=== PATIENT | male | born 1955 | race African-American/Black ===

== ENCOUNTER → 2016-12-14 | Outpatient (CLI) | payer OTHER ==
[~2016-12-14] MED LIST: ATEN50TA PO; CLON.1 PO; CYMB30CA PO; CYMB60CA PO; DILA2TAB4 PO; HYDR-3516 PO; HYDR-3583 PO; HYDR25TA5 PO; HYDR2TAB PO; HYDR50TA15 PO; IBUP800T23 PO; LABE200T2 PO; LIDO5%T TOPICAL; METH500T3 PO; TAMS0.4C4 PO; VERA120T3 PO; WALKER WHEELS/F1 MIS
[2016-12-14 10:55] LABS: BLOOD, URINE NEG (NEG); GLUCOSE,URINE NEG (NEG); KETONE, URINE NEG (NEG); MUCUS URINE FEW /lpf (OCC); NITRITE,URINE NEG (NEG); PH, URINE 5.5 (5.0-8.5); SQUAMOUS EPITHELIAL CELL URINE <1 /hpf (0-5); URINE COLOR YELLOW (YELLW/STRAW)
[2016-12-14 10:56] LABS: AUTOMATED NEUTROPHIL # 3.3 TH/MM3 (1.8-7.7); BASOPHIL % 0.3 % (0.0-2.0); EOSINOPHIL # 0.1 TH/MM3 (0-0.4); EOSINOPHIL % 1.7 % (0.0-4.0); HEMATOCRIT 36.5 % (39.0-51.0); LYMPH % 25.7 % (9.0-44.0); LYMPHOCYTE # 1.4 TH/MM3 (1.0-4.8); MEAN CELL VOLUME 74.1 FL (80.0-100.0); MEAN CORPUSCULAR HEMOGLOBIN 23.4 PG (27.0-34.0); MEAN CORPUSCULAR HGB CONC 31.5 % (32.0-36.0); MONO % 13.8 % (0.0-8.0); NEUT % 58.5 % (16.0-70.0); PLATELET COUNT 241 TH/MM3 (150-450); RED BLOOD COUNT 4.92 MIL/MM3 (4.50-5.90); RED CELL DISTRIBUTION WIDTH 15.4 % (11.6-17.2); WHITE BLOOD COUNT 5.6 TH/MM3 (4.0-11.0)
[2016-12-14 10:58] LABS: COMMENT (UR) CULT NOT INDICATED; CULTURE IF INDICATED CULT NOT INDICATED
[2016-12-14 10:58] LABS: HEMO FLAGS AUTO DIFF
[2016-12-14 11:01] LABS: APTT (PATIENT) 25.8 SEC (24.3-30.1); PROTHROMBIN TIME - PATIENT 10.7 SEC (9.8-11.6)
[2016-12-14 11:21] LABS: ALKALINE PHOSPHATASE 41 U/L (45-117); ALT (GPT) 16 U/L (12-78); ANION GAP 9 MEQ/L (5-15); AST (GOT) 16 U/L (15-37); BICARBONATE 26.4 MEQ/L (21.0-32.0); BLOOD UREA NITROGEN 20 MG/DL (7-18); CHLORIDE 105 MEQ/L (98-107); GLOMERULAR FILTRATION RATE 58 ML/MIN (>89); GLUCOSE,FASTING 82 MG/DL (74-99); POTASSIUM 3.2 MEQ/L (3.5-5.1); SODIUM (NA) 140 MEQ/L (136-145); TOTAL BILIRUBIN ADULT 0.3 MG/DL (0.2-1.0)
[2016-12-14 11:36] LABS: OVALOCYTES 1+ (NORMAL); SCAN/DIFF AUTO DIFF CONFIRMED
--- NOTE | 2016-12-14 12:53 | RADRPT ---
EXAM DATE/TIME: 12/14/2016 11:15 [facility] COMPARISON: No previous studies available for comparison. INDICATIONS : Evaluate for pneumonia, pneumothorax or communicable diseases. Pre-op for spinal stimulator placemen t surgery. MEDICAL HISTORY : None. SURGICAL HISTORY : Lumbar laminectomy. ENCOUNTER: Initial ACUITY: 1 day PAIN SCORE: 0/10 LOCATION: chest FINDINGS: PA and lateral views of the chest demonstrate the lungs to be symmetrically aerated without evidence of mass, infiltrate or effusion. The cardiomediastinal contours are unremarkable. Osseous structure s are intact. CONCLUSION: No acute disease. Rodrigo Bustos MD FACR on December 14, 2016 at 12:50 Board Certified Radiologist. This report was verified electronically.
--- NOTE | 2016-12-16 13:14 | EKG ---
Date Performed: 12/14/2016 Time Performed: 10:30:44 PTAGE: 61 years EKG: SINUS BRADYCARDIA LEFT VENTRICULAR HYPERTROPHY AND ST-T CHANGE Since previous tracing, no s ignificant change noted ABNORMAL ECG PREVIOUS TRACING 05/05/2008 [id number] DOCTOR: Cathy Garnett Interpretating Date/Time 12/16/2016 13:12:24
== END ==
LOC: CPRE 10:04
PROVIDERS: ATTEND Neurological Surgery
DX: Z01.810 Encounter for preprocedural cardiovascular examination (principal); Z01.811 Encounter for preprocedural respiratory examination; Z01.812 Encounter for preprocedural laboratory examination
CPT/HCPCS: 36415; 71020; 80053; 81001; 85025; 85610; 85730; 93005

== ENCOUNTER 2016-12-21 06:03 | Inpatient (IN) | payer OTHER ==
[~2016-12-21] VITALS: Ht 180.3 cm; Wt 102.2 kg
[~2016-12-21 06:03] MED LIST changes: -CYMB30CA PO; -CYMB60CA PO; -DILA2TAB4 PO; -HYDR-3516 PO; -LIDO5%T TOPICAL; -TAMS0.4C4 PO; -WALKER WHEELS/F1 MIS
[2016-12-21] MEDS ORDERED: LACTATED RINGER'S 1000 ML IV SCH (06:45)
[2016-12-21] MEDS ORDERED: METOPROLOL TARTRATE 25 MG TAB PO PRN (06:45)
[2016-12-21] MEDS ORDERED: ceFAZolin 2 GM PREMIX 50 ML IV SCH (06:45)
[2016-12-21] MEDS ORDERED: SODIUM CHLORID 0.9% 500 ML IV SCH (06:45)
[2016-12-21] MEDS ORDERED: INSULIN HUMAN REGULAR 1,000 UNITS/10 ML VIAL SQ PRN (06:45)
[2016-12-21 07:01] VITALS: BP 122/76; PULSE 63; RESP 18; TEMP 97.4; O2SAT 99
[2016-12-21] MEDS ORDERED: THROMBIN (TOPICAL) 5,000 UNIT VIAL ONE (07:25)
[2016-12-21] MEDS ORDERED: GELFOAM SIZE 100 ONE (07:25)
[2016-12-21] MEDS ORDERED: LIDOCAINE 1%/EPINEPHrine 1:100,000 SOLN 30 ML VIAL ONE (07:25)
[2016-12-21] MEDS ORDERED: BUPIVACAINE HCL PF 0.5% 30 ML VIAL ONE (07:25)
[2016-12-21] MEDS ORDERED: ACETAMINOPHEN 1000 MG/100 ML VIAL IV ONE (09:35)
[2016-12-21] MEDS ORDERED: FAMOTIDINE 20 MG/2 ML VIAL ONE (09:35)
[2016-12-21] MEDS ORDERED: ARTIFICIAL TEARS OPTH OINT 3.5 APPLIC/3.5 GM TUBO ONE (09:36)
[2016-12-21] MEDS ORDERED: DEXAMETHASONE SOD PHOS 4 MG/ML VIAL ONE (09:36)
[2016-12-21] MEDS ORDERED: MIDAZOLAM HCL 2 MG/2 ML VIAL ONE (09:36)
[2016-12-21] MEDS ORDERED: ceFAZolin INJ 1,000 MG VIAL IV ONE (11:10)
[2016-12-21] MEDS ORDERED: NEOSTIGMINE METHYLSULFATE 10 MG/10 ML VIAL IV PUSH ONE (12:00)
[2016-12-21] MEDS ORDERED: ePHEDrine/NS 25 MG/5 ML SYR IV ONE (12:00)
[2016-12-21] MEDS ORDERED: SODIUM CHLOR 0.9% 250 ML INJ 500 ML IV ONE (12:00)
[2016-12-21] MEDS ORDERED: PROPOFOL 200 MG/20 ML AMP IV ONE (12:00)
[2016-12-21] MEDS ORDERED: ONDANSETRON HCL 4 MG/2 ML VIAL IV PUSH ONE (12:00)
[2016-12-21] MEDS ORDERED: LACTATED RINGER'S 1000 ML INJ 1,000 ML IV ONE (12:00)
[2016-12-21] MEDS ORDERED: PHENYLEPH/NS 1000 MCG/10 ML SYR IV ONE (12:00)
[2016-12-21] MEDS ORDERED: DO NOT ADM ANY ANTICOAGULANT DRUGS XX PRN (12:10)
[2016-12-21] MEDS ORDERED: ONDANSETRON HCL 4 MG/2 ML VIAL IV PUSH PRN (12:45)
[2016-12-21] MEDS ORDERED: ACETAMINOPHEN/HYDROcodone 325 MG/10 MG TAB PO PRN ×2 (12:45→15:15)
[2016-12-21] MEDS ORDERED: fentaNYL CITRATE 250 MCG/5 ML AMP ONE (13:00)
[2016-12-21] MEDS ORDERED: MORPHINE SULFATE 4 MG/ML INJ ONE (13:00)
[2016-12-21] MEDS ORDERED: SODIUM CHLORIDE FLUSH PRN IVF (14:00)
[2016-12-21] MEDS ORDERED: HYDROmorphone HCL 2 MG TAB PO PRN (15:15)
[2016-12-21] MEDS ORDERED: METHOCARBAMOL 500 MG TAB PO PRN (15:30)
[2016-12-21] MEDS ORDERED: IBUPROFEN 800 MG TAB PO PRN (15:45)
[2016-12-21 16:00] VITALS: BP 180/93; PULSE 60; RESP 20; TEMP 96.2; O2SAT 98
--- NOTE | 2016-12-21 16:30 | RADRPT ---
EXAM DATE/TIME: 12/21/2016 11:05 COMPARISON: No previous studies available for comparison. INDICATIONS : Stimulator placement. MEDICAL HISTORY : None. SURGICAL HISTORY : None. ENCOUNTER: Initial ACUITY: 1 day PAIN SCORE: 0/10 LOCATION: Thoracic spine. FINDINGS: Epidural stimulator leads are present in the thoracic spine. Small field of view does not allow level localization. CONCLUSION: 1. Postsurgical changes as above. Gaurang Freeman MD on December 21, 2016 at 16:28 Board Certified Radiologist. This report was verified electronically.
[2016-12-21] MEDS: hydrALAZINE HCL 50 MG TAB PO SCH (17:26)
[2016-12-21] MEDS: VERAPAMIL HCL 120 MG TAB PO SCH (17:27)
[2016-12-21] MEDS ORDERED: VERAPAMIL HCL 120 MG TAB PO SCH (18:00)
[2016-12-21] MEDS ORDERED: hydrALAZINE HCL 50 MG TAB PO SCH (18:00)
[2016-12-21 18:40] VITALS: O2SAT 98
[2016-12-21] MEDS: METHOCARBAMOL 500 MG TAB PO PRN (20:56)
[2016-12-21] MEDS: HYDROCHLOROTHIAZIDE 25 MG TAB PO SCH (20:57)
[2016-12-21] MEDS: cloNIDine HCL 0.1 MG TAB PO SCH (20:57)
[2016-12-21] MEDS: ATENOLOL 50 MG TAB PO SCH (20:57)
[2016-12-21] MEDS: SODIUM CHLORIDE FLUSH BID IVF SCH (20:59)
[2016-12-21] MEDS ORDERED: LABETALOL HCL 200 MG TAB PO SCH (21:00)
[2016-12-21] MEDS ORDERED: HYDROCHLOROTHIAZIDE 25 MG TAB PO SCH (21:00)
[2016-12-21] MEDS ORDERED: cloNIDine HCL 0.1 MG TAB PO SCH (21:00)
[2016-12-21] MEDS: oxyCODONE HCL 10 MG CONTROLLED RELEASE TAB PO SCH (21:10)
[2016-12-21 21:12] VITALS: BP 176/95; PULSE 56; RESP 20; TEMP 96; O2SAT 100
[2016-12-21] MEDS: TAMSULOSIN HCL 0.4 MG CAP PO SCH (21:47)
[2016-12-22] VITALS (7 sets, daily range): BP systolic 135–188; BP diastolic 78–95; PULSE 58–74; RESP 16–20; TEMP 96.2–100.7; O2SAT 95–100
[2016-12-22] MEDS: HYDROmorphone HCL 2 MG TAB PO PRN ×6 (00:42→20:50)
[2016-12-22] MEDS: METHOCARBAMOL 500 MG TAB PO PRN ×2 (04:48→13:03)
[2016-12-22] MEDS: oxyCODONE HCL 10 MG CONTROLLED RELEASE TAB PO SCH ×3 (05:59→22:20)
[2016-12-22] MEDS: hydrALAZINE HCL 50 MG TAB PO SCH ×3 (06:09→17:32)
[2016-12-22] MEDS: TAMSULOSIN HCL 0.4 MG CAP PO SCH (08:52)
[2016-12-22] MEDS: VERAPAMIL HCL 120 MG TAB PO SCH ×3 (08:52→17:32)
[2016-12-22] MEDS: HYDROCHLOROTHIAZIDE 25 MG TAB PO SCH ×2 (08:52→20:43)
[2016-12-22] MEDS: ATENOLOL 50 MG TAB PO SCH (08:53)
[2016-12-22] MEDS: cloNIDine HCL 0.1 MG TAB PO SCH ×2 (08:54→20:43)
[2016-12-22] MEDS: SODIUM CHLORIDE FLUSH BID IVF SCH ×2 (09:00→20:44)
[2016-12-22 11:16] LABS: ALT (GPT) 20 U/L (12-78); ANION GAP 9 MEQ/L (5-15); AST (GOT) 23 U/L (15-37); BLOOD UREA NITROGEN 15 MG/DL (7-18); CHLORIDE 100 MEQ/L (98-107); GLOMERULAR FILTRATION RATE 70 ML/MIN (>89); POTASSIUM 3.3 MEQ/L (3.5-5.1); SODIUM (NA) 137 MEQ/L (136-145)
[2016-12-22 11:19] LABS: ALKALINE PHOSPHATASE 40 U/L (45-117); TOTAL BILIRUBIN ADULT 0.7 MG/DL (0.2-1.0)
[2016-12-22] MEDS ORDERED: LIDOCAINE HCL 5% OINT 37 GM TUBE TOPICAL PRN (14:30)
--- NOTE | 2016-12-22 14:31 | HHI.NSPN ---
History Chief Complaint: incisional pain Interval History 61 yr old with chronic back and neurogenic pain is s/p laminotomy for implant of dorsal column stimulator yesterday. EKG changes were noted as well as HTN and constipation. He was admitted overnight for pain management and PT. He had some urinary retention last night but improved after flomax. Review of Systems General: Negative for: fever, chills, insomnia Respiratory: Negative for: shortness of breath, cough, sputum Cardiovascular: Negative for: chest pain, palpitations, orthopnea Gastrointestinal: Negative for: nausea, vomitting, diarrhea, constipation Exam Results Vital Signs Date Time Temp Pulse Resp B/P Pulse Ox O2 Delivery O2 Flow Rate FiO2 12/22/16 12:33 97.2 65 20 165/89 95 12/21/16 18:40 21 12/21/16 14:25 Room Air 12/21/16 12:11 2 Physical Examination Alert, c/po incisional pain Motor strength limited in the upright position but is good when laying down in both hip flex/quads/ant tib and gastroc Wounds on the flank and back are dry and closed No Babinski, no rashes. Lab, Micro, Other Results Laboratory Tests Test 12/22/16 10:31 Sodium Level 137 MEQ/L Potassium Level 3.3 MEQ/L Chloride Level 100 MEQ/L Carbon Dioxide Level 28.0 MEQ/L Anion Gap 9 MEQ/L Blood Urea Nitrogen 15 MG/DL Creatinine 1.27 MG/DL Estimat Glomerular Filtration 70 ML/MIN Rate Random Glucose 118 MG/DL Calcium Level 8.9 MG/DL Total Bilirubin 0.7 MG/DL Aspartate Amino Transf 23 U/L (AST/SGOT) Alanine Aminotransferase 20 U/L (ALT/SGPT) Alkaline Phosphatase 40 U/L Total Protein 8.2 GM/DL Albumin 3.8 GM/DL Medical Decision Making Impression and Plan 1- Chronic pain syndrome, expected post operative pain from previous opioid dependence, should improve after a few days. He was encouraged to get OOB and to walk with his walker. Fentanyl was added to wean the oxycontin down tomorrow. 2- Constipation is chronic but bowel progra was instrumented. 3- HTN, severe and poorly controlled. EKG changes noted and renal consult for better management requested. Total Minutes: 10 Jesús Sharpe Dec 22, 2016 14:31
[2016-12-22] MEDS: POLYETHYLENE GLYCOL 17 GM PKG PO SCH (14:53)
[2016-12-22] MEDS: BISACODYL 10 MG SUPP RECTAL SCH (14:54)
[2016-12-22] MEDS ORDERED: fentaNYL 25 MCG/HR PATCH TD SCH (16:00)
--- NOTE | 2016-12-22 16:03 | MB ---
cc: REFUGIO CHANEL MD DATE OF CONSULTATION: 12/22/2016 REASON FOR CONSULTATION Hypertension uncontrolled, rule out secondary hypertension. HISTORY OF PRESENT ILLNESS This is a 61-year-old male with a past medical history of hypertension for 20 years, history of chronic back pain with herniated lumbar pulposus, history of chronic liver disease who was admitted for the back surgery. The patient has a history of hypertension for 20 years and according to him 7 or 8 years ago he had some workup done for secondary hypertension and he was told that they did not find anything. I do not have anything available in the computer, possibly it was done as an outpatient. The patient claims that he has not very well-controlled blood pressure at home, his systolic has been in the range of 170s and 160s. Here it is the same thing, the systolic goes from 170-188 and the diastolic has been around 89-95. The patient denies any headache, dizziness or blurring of vision. He has no palpitation. There is no weight loss. He has excessive sweating off and on. His appetite is normal. No nausea or vomiting. No history of diarrhea. No history of dysuria or hematuria. No history of renal stone. PAST MEDICAL HISTORY 1. Hypertension. 2. Chronic liver disease. 3. Chronic back pain. PAST SURGICAL HISTORY 1. Right shoulder arthroscopy and debridement. 2. Just had the back surgery. REVIEW OF SYSTEMS There is no history of fever. No headache, dizziness or blurring of vision. No shortness of breath. No chest pain. No palpitation. No nausea or vomiting. No history of weight loss. He has excessive sweating sometimes. There is no dysuria, hematuria or difficulty in passing urine. SOCIAL HISTORY There is no history of smoking. Occasionally drinks alcoholic beverages. There is no history of using any other drugs. FAMILY HISTORY Positive for hypertension. Father had history of hypertension and at the age of 50 with leukemia. Mother at age of 51 with breast cancer. ALLERGIES HE IS ALLERGIC TO MULTIPLE MEDICATIONS INCLUDING OSCAR INHIBITORS, CIPRO, CODEINE, LISINOPRIL, NORVASC. MEDICATIONS Currently he is on the following medications. 1. Normal saline at 30 an hour. 2. Bactrim DS one tablet b.i.d. 3. Atenolol 50 mg b.i.d. 4. Clonidine 0.1 mg b.i.d. 5. Hydrochlorothiazide 25 mg b.i.d. 6. Cephazolin one dose recreational specialist. 7. Flomax 0.4 mg once a day. 8. Oxycodone 10 mg q.8 hours. 9. Hydralazine 50 mg t.i.d. 10. Verapamil 120 mg t.i.d. 11. Zofran as needed. 12. Dilaudid as needed. PHYSICAL EXAMINATION GENERAL: The patient is awake, alert, he is not in acute distress. VITAL SIGNS: His last blood pressure is 165/89, temperature is 97.2, oxygen saturation 95%. HEENT: Pupils equally reacting to light. Nonicteric sclerae. Conjunctivae normal. NECK: Supple. JVD is not elevated. LUNGS: The patient has bilateral good air entry with occasional wheezing. HEART: S1, S2. Regular rhythm. ABDOMEN: Obese, soft, lax. There is no tenderness. Bowel sounds positive. EXTREMITIES: There is no pedal edema. INVESTIGATION WBC count is 5.6, hemoglobin 11.5, platelet count of 241. Sodium 137, potassium 3.3, chloride 100, bicarb 28, BUN 15, creatinine 1.2, glucose 118, AST/ALT normal, alkaline phosphatase 40, total protein is 8.2, albumin is 3.8, anion is 1.0. INR is 1.0. Urinalysis showing that there is trace protein. IMAGING STUDIES The patient has a thoracic spine x-ray done which shows postsurgical changes. ASSESSMENT AND PLAN 1. Post thoracic spine surgery. 2. Hypertension, uncontrolled. 3. Hypokalemia. 4. Acute kidney injury. 5. History of hyperlipidemia. The patient has still uncontrolled blood pressure and he is currently on atenolol, clonidine and hydrochlorothiazide. I will discontinue the atenolol and put him on labetalol. Need the workup for the secondary hypertension especially since he has hypokalemia, need to rule out hyperaldosteronism or hypoalbuminemic state. I will check the renin-aldosterone level also get the MRA of the renal arteries. His creatinine was slightly elevated, it is improving, possibly could be drug related or may be from the diuretic, we just need to keep an eye on it and if it gets worse further then he will need more workup. Thank you for the consultation and I will follow the patient while he is in the hospital. MD FELA Hussein/BJF /12:46 PM /2:[address] [facility]
[2016-12-22] MEDS: LABETALOL HCL 200 MG TAB PO SCH (20:43)
[2016-12-22] MEDS ORDERED: diphenhydrAMINE HCL 25 MG CAP PO ONE (23:45)
[2016-12-23] VITALS (7 sets, daily range): BP systolic 113–185; BP diastolic 69–86; PULSE 60–71; RESP 18–20; TEMP 98.5–99.8; O2SAT 94–99
[2016-12-23] MEDS: HYDROmorphone HCL 2 MG TAB PO PRN ×6 (00:01→23:20)
[2016-12-23] MEDS: oxyCODONE HCL 10 MG CONTROLLED RELEASE TAB PO SCH ×3 (05:22→21:12)
[2016-12-23] MEDS: SODIUM CHLORIDE FLUSH BID IVF SCH ×2 (09:00→21:00)
[2016-12-23] MEDS: POLYETHYLENE GLYCOL 17 GM PKG PO SCH (09:00)
--- NOTE | 2016-12-23 09:55 | RADRPT ---
EXAM DATE/TIME: 12/23/2016 08:05 [facility] COMPARISON: No previous studies available for comparison. INDICATIONS : Renal artery stenosis. MEDICAL HISTORY : Hypertension. Gastroesophageal reflux disease. Neuropathy. Renal cysts. Liver disease. SURGICAL HISTORY : Left rotator cuff repair. Lumbar surgery. Left knee arthroscopy. ENCOUNTER: Initial ACUITY: 1 day PAIN SCORE: 4/10 LOCATION: Bilateral flank Examination is limited due to overlying bowel gas heavy breathing. PEAK FLOW VELOCITIES (cm/sec): AORTA: 64.3 PROXIMAL: 61.0 MID: 62.9 DISTAL: 108.1 RIGHT RENAL ARTERY: PROXIMAL: Nonvisualized MID: 148.4 DISTAL: 169.2 RENAL ARTERY RATIO: 1.6 ARCUATE ARTERY RESISTIVE INDEX: Upper: 0.7 Mid: 0.7 Lower: 0.7 LEFT RENAL ARTERY: PROXIMAL: 54.1 MID: 91.7 DISTAL: 176.4 RENAL ARTERY RATIO: 1.6 ARCUATE ARTERY RESISTIVE INDEX: Upper: 0.7 Mid: 0.6 Lower: 0.7 FINDINGS: Renal artery and vein mapping as listed above. There is no evidence of hydronephrosis. There is a 4 cm benign appearing cyst associated with the left kidney. CONCLUSION: 1. There is vascular flow to both kidneys. The resistive index appears to be within normal limits todd aterally. 2. No evidence of hydronephrosis. 3. Benign left renal cyst. Mauricio Robles MD on December 23, 2016 at 9:51 Board Certified Radiologist. This report was verified electronically.
[2016-12-23] MEDS: BISACODYL 10 MG SUPP RECTAL SCH ×2 (10:21→10:26)
[2016-12-23] MEDS: TAMSULOSIN HCL 0.4 MG CAP PO SCH (10:25)
[2016-12-23] MEDS: cloNIDine HCL 0.1 MG TAB PO SCH ×2 (10:26→21:12)
[2016-12-23] MEDS: LABETALOL HCL 200 MG TAB PO SCH ×2 (10:26→21:12)
[2016-12-23] MEDS: METHOCARBAMOL 500 MG TAB PO PRN ×2 (10:26→17:26)
[2016-12-23] MEDS: VERAPAMIL HCL 120 MG TAB PO SCH ×3 (10:26→17:26)
[2016-12-23] MEDS: hydrALAZINE HCL 50 MG TAB PO SCH ×3 (10:26→17:26)
[2016-12-23] MEDS: HYDROCHLOROTHIAZIDE 25 MG TAB PO SCH ×2 (10:26→21:12)
--- NOTE | 2016-12-23 11:18 | HHI.NPPN ---
Subjective History of Present Illness 61-year-old male with a past medical history of hypertension for 20 years, history of chronic back pain with herniated lumbar pulposus, history of chronic liver disease who was admitted for the back surgery. The patient has a history of hypertension for 20 years and according to him 7 or 8 years ago he had some workup done for secondary hypertension and he was told that they did not find anything. Additional Remarks Patient is alert, sitting on chair, not in distress. Review of Systems General Constitutional: Fatigue Objective Data Data 12/22/16 12/23/16 19:00 07:00 Intake Total 240 ml Output Total 600 ml Balance -360 ml Intake Oral 240 ml IV Total 0 ml Output Urine Total 600 ml Bladder Scan Volume Amount 100 ml # Voids 3 2 Vital Signs Date Time Temp Pulse Resp B/P Pulse Ox O2 Delivery O2 Flow Rate FiO2 12/23/16 08:53 98.5 69 20 185/86 96 12/23/16 05:12 99.8 60 19 176/80 98 12/23/16 05:00 20 12/23/16 00:23 98.8 67 18 164/85 94 12/22/16 23:20 20 12/22/16 20:52 99.2 64 18 135/78 96 12/22/16 19:16 21 12/22/16 16:00 100.7 74 20 165/94 98 12/22/16 12:33 97.2 65 20 165/89 95 -: 12/22/16 1031 Physical Exam General Appearance: No Acute Distress, Comfortable Eyes Eye Exam: Pupils Equal Throat Throat Exam: Oral Mucosa [place] & Moist Pulmonary Resp Exam: Clear Bilaterally, Breath Sounds Equal, No Distress, Decreased Bases Cardiology CV Exam: Regular, Normal Sinus Rhythm Gastrointestinal/Abdomen GI Exam: Soft, Non-Tender, Bowel Sounds Present Extremeties Extremities Exam: Trace Edema Neurologic Neuro Exam: Alert, Awake, Oriented Psychiatric Psych Exam: Appropriate Responses Assessment/Plan Assessment Summary: Hypertension Problem List: Plan Assessment: 1. Hypertension. 2. Post Laminectomy and pacer implant. 3. Hypokalemia. 4. Acute kidney injury. Plan: Patient has better BP last night and increased now. Now headache, started on Labetalol, follow the BP. Renin and August. PND. MRA of renal arteries on hold for now due to recent back surgery. If D/C will need out patient follow up. Annmarie Garcia MD Dec 23, 2016 11:18
--- NOTE | 2016-12-23 13:35 | HHI.NSPN ---
History Chief Complaint: incisional pain Interval History 61 yr old with chronic back and neurogenic pain is s/p laminotomy for implant of dorsal column stimulator yesterday. EKG changes were noted as well as HTN and constipation. He was admitted overnight for pain management and PT. He had some urinary retention last night but improved after flomax. 12/23/16 Renal consult appreciated. The BP control is improved. The constipation is severe. His pain is improving. Review of Systems General: Negative for: fever, chills, insomnia Respiratory: Negative for: shortness of breath, cough, sputum Cardiovascular: Negative for: chest pain, palpitations, orthopnea Gastrointestinal: Positive for: constipation Exam Results Vital Signs Date Time Temp Pulse Resp B/P Pulse Ox O2 Delivery O2 Flow Rate FiO2 12/23/16 13:22 99.1 65 20 113/69 97 12/23/16 09:48 21 12/21/16 14:25 Room Air 12/21/16 12:11 2 Intake and Output 12/22/16 12/22/16 12/23/16 08:00 16:00 00:00 Intake Total 240 ml Output Total 1300 ml Balance -1300 ml 240 ml Physical Examination Alert, c/po incisional pain Motor strength limited in the upright position but is good when laying down in both hip flex/quads/ant tib and gastroc Wounds on the flank and back dressed, scant drainage on the back No Babinski, no rashes. Lab, Micro, Other Results Last Impressions Renal Ultrasound 12/23/16 0000 Signed Impressions: Service Date/Time: Friday, December 23, 2016 08:05 - CONCLUSION: 1. There is vascular flow to both kidneys. The resistive index appears to be within normal limits bilaterally. 2. No evidence of hydronephrosis. 3. Benign left renal cyst. Mauricio Robles MD Thoracic Spine X-Ray 12/21/16 0000 Signed Impressions: Service Date/Time: Wednesday, December 21, 2016 11:05 - CONCLUSION: 1. Postsurgical changes as above. Gaurang Freeman MD Medical Decision Making Impression and Plan 1- Chronic pain syndrome, expected post operative pain from previous opioid dependence, should improve after a few days. He was encouraged to get OOB and to walk with his walker. Fentanyl was added to wean the oxycontin down tomorrow. 2- Constipation is chronic but bowel progra was instrumented. 3- HTN, severe and poorly controlled. EKG changes noted and renal consult for better management requested. Total Minutes: 10 Jesús Sharpe Dec 23, 2016 13:35
[2016-12-23] MEDS ORDERED: MAGNESIUM CITRATE SOLN 300 ML BTL PO ONE (13:45)
[2016-12-23] MEDS ORDERED: HYDROCORTISONE 2.5% CREAM 30 GM TOP PRN (21:00)
[2016-12-24 00:35] VITALS: BP 160/77; PULSE 68; RESP 19; TEMP 99.8; O2SAT 97
[2016-12-24 04:42] VITALS: BP 161/92; PULSE 68; RESP 19; TEMP 99.3; O2SAT 96
[2016-12-24] MEDS: HYDROmorphone HCL 2 MG TAB PO PRN ×2 (04:57→09:59)
[2016-12-24] MEDS: oxyCODONE HCL 10 MG CONTROLLED RELEASE TAB PO SCH ×2 (06:22→13:40)
[2016-12-24 07:40] LABS: AUTOMATED NEUTROPHIL # 8.2 TH/MM3 (1.8-7.7); BASOPHIL % 0.3 % (0.0-2.0); EOSINOPHIL % 0.4 % (0.0-4.0); HEMATOCRIT 32.9 % (39.0-51.0); LYMPH % 9.8 % (9.0-44.0); LYMPHOCYTE # 1.1 TH/MM3 (1.0-4.8); MEAN CELL VOLUME 72.6 FL (80.0-100.0); MEAN CORPUSCULAR HEMOGLOBIN 23.6 PG (27.0-34.0); MEAN CORPUSCULAR HGB CONC 32.5 % (32.0-36.0); NEUT % 76.5 % (16.0-70.0); PLATELET COUNT 212 TH/MM3 (150-450); RED BLOOD COUNT 4.53 MIL/MM3 (4.50-5.90); RED CELL DISTRIBUTION WIDTH 15.1 % (11.6-17.2); WHITE BLOOD COUNT 10.8 TH/MM3 (4.0-11.0)
[2016-12-24 07:45] LABS: HEMO FLAGS AUTO DIFF
[2016-12-24 08:00] LABS: ALKALINE PHOSPHATASE 37 U/L (45-117); ALT (GPT) 15 U/L (12-78); ANION GAP 7 MEQ/L (5-15); AST (GOT) 16 U/L (15-37); BICARBONATE 32.1 MEQ/L (21.0-32.0); BLOOD UREA NITROGEN 22 MG/DL (7-18); CHLORIDE 92 MEQ/L (98-107); GLOMERULAR FILTRATION RATE 69 ML/MIN (>89); POTASSIUM 3.6 MEQ/L (3.5-5.1); SODIUM (NA) 131 MEQ/L (136-145); TOTAL BILIRUBIN ADULT 1.1 MG/DL (0.2-1.0)
[2016-12-24] MEDS ORDERED: DULoxetine HCl DR 30 MG CAP PO SCH (09:00)
[2016-12-24 09:02] VITALS: BP 180/89; PULSE 62; RESP 20; TEMP 99.7; O2SAT 95
[2016-12-24] MEDS: cloNIDine HCL 0.1 MG TAB PO SCH (09:51)
[2016-12-24] MEDS: LABETALOL HCL 200 MG TAB PO SCH (09:51)
[2016-12-24] MEDS: hydrALAZINE HCL 50 MG TAB PO SCH ×2 (09:52→13:40)
[2016-12-24] MEDS: VERAPAMIL HCL 120 MG TAB PO SCH ×2 (09:52→13:40)
[2016-12-24] MEDS: TAMSULOSIN HCL 0.4 MG CAP PO SCH (09:52)
[2016-12-24] MEDS: BISACODYL 10 MG SUPP RECTAL SCH (09:52)
[2016-12-24] MEDS: HYDROCHLOROTHIAZIDE 25 MG TAB PO SCH (09:52)
[2016-12-24] MEDS: POLYETHYLENE GLYCOL 17 GM PKG PO SCH (09:53)
[2016-12-24] MEDS: SODIUM CHLORIDE FLUSH BID IVF SCH (09:53)
[2016-12-24 09:54] LABS: PLATELET ESTIMATE SMEAR NORMAL (NORMAL); PLATELET MORPHOLOGY NORMAL (NORMAL); SCAN/DIFF AUTO DIFF CONFIRMED
[2016-12-24] MEDS ORDERED: CYMB30CA PO (11:23)
[2016-12-24] MEDS ORDERED: WALKER WHEELS/F1 MIS (11:28)
--- NOTE | 2016-12-24 11:35 | HHI.DS ---
Discharge Summary Admission Date Dec 23, 2016 at 08:35 Discharge Date: Dec 24, 2016 Admitting Diagnosis chronic pain (1) Neuropathy Diagnosis: Secondary ICD Code: G62.9 (2) HTN (hypertension), malignant Diagnosis: Secondary ICD Code: I10 (3) Chronic pain Diagnosis: Principal ICD Code: G89.29 CBC/BMP: 12/24/16 0712 12/24/16 0712 Significant Findings Laboratory Tests Test 12/22/16 12/24/16 10:31 07:12 Potassium Level 3.3 MEQ/L (3.5-5.1) Estimat Glomerular Filtration 70 ML/MIN (>89) 69 ML/MIN (>89) Rate Random Glucose 118 MG/DL (74-106) Alkaline Phosphatase 40 U/L (45-117) 37 U/L (45-117) Hemoglobin 10.7 GM/DL (13.0-17.0) Hematocrit 32.9 % (39.0-51.0) Mean Corpuscular Volume 72.6 FL (80.0-100.0) Mean Corpuscular Hemoglobin 23.6 PG (27.0-34.0) Neutrophils (%) (Auto) 76.5 % (16.0-70.0) Monocytes (%) (Auto) 13.0 % (0.0-8.0) Neutrophils # (Auto) 8.2 TH/MM3 (1.8-7.7) Monocytes # (Auto) 1.4 TH/MM3 (0-0.9) Sodium Level 131 MEQ/L (136-145) Chloride Level 92 MEQ/L (98-107) Carbon Dioxide Level 32.1 MEQ/L (21.0-32.0) Blood Urea Nitrogen 22 MG/DL (7-18) Total Bilirubin 1.1 MG/DL (0.2-1.0) Total Protein 8.3 GM/DL (6.4-8.2) Hospital Course The patient had implantation of a Penta lead at T9 and Proclaim IPG complicated by severe HTN post op, EKG abnormality and renal insuffeciency as well as constipation. He improved with supportive care, IV hydration but a nephrology follow up is planned to help with the HTN management work up and cymbalta was added for the chronic burning pain. Pt Condition on Discharge: Stable Discharge Disposition: Discharge Home Discharge Instructions DIET: Follow Instructions for: Heart Healthy Diet ACTIVITIES You can perform: Weight Bearing As [place] Activities to Avoid: Lifting/Bending, Prolonged Standing, Strenuous Activity Follow up Referrals: Nephrology - 1 Week @ [facility] - 1 Week @ [facility] New Medications: Duloxetine DR (Cymbalta DR) 30 Mg Capdr 30 MG PO DAILY nerve burning Days 30 Ref 5 CAP Walker with Front Wheels (Walker with Front Wheels) 1 Mis Mis 1 EA .XX CONTINUOUS PRN balance #1 Ref 0 EA Continued Medications: Clonidine (Catapres) 0.1 Mg Tab 0.1 MG PO BID Blood Pressure Management #60 Ref 0 TAB Hydralazine (Hydralazine) 50 Mg Tab 50 MG PO TID Take with a meal Blood Pressure Management Ref 0 TAB Hydrochlorothiazide (Hydrochlorothiazide) 25 Mg Tab 25 MG PO BID #30 TAB Hydrocodone-Acetaminophen (Hydrocodone-Acetaminophen) 10-325 mg Tab 1 TAB PO Q6H PRN PAIN Ref 0 TAB Hydromorphone (Hydromorphone) 2 Mg Tab 2 MG PO Q8H PRN PAIN Ref 0 TAB Labetalol (Labetalol) 200 Mg Tab 200 MG PO BID Blood Pressure Management Ref 0 TAB Methocarbamol (Methocarbamol) 500 Mg Tab 500 MG PO TID PRN Muscle Spasm #90 Ref 0 TAB Verapamil (Verapamil) 120 Mg Tab 120 MG PO TID #90 Ref 0 TAB Discontinued Medications: Atenolol (Atenolol) 50 Mg Tab 50 MG PO BID Blood Pressure Management #60 Ref 0 TAB Ibuprofen (Ibuprofen) 800 Mg Tab 800 MG PO Q6HR PRN PAIN #40 Ref 0 TAB Jesús Sharpe Dec 24, 2016 11:35
--- NOTE | 2016-12-25 11:02 | MP ---
cc: JESÚS VILLA MD DATE OF SURGERY: 12/21/2016 PREOPERATIVE DIAGNOSIS Chronic pain syndrome. POSTOPERATIVE DIAGNOSIS Chronic pain syndrome. PROCEDURE Implant of Penta lead and Proclaim generator from [employer] with a laminotomy at T9. The Penta lead has a serial number [id number], reference 3228, and the Proclaim 5 Elite, serial number [id number], reference number 3660. ANESTHESIA General. INDICATION The patient is a 61-year-old gentleman with a history of previous back surgery and chronic pain, intractable, refractory to maximal medical and surgical treatment. He underwent a trial of neuromodulation with greater than 50% relief at T8-9 with an octade lead with Dr. Marsh in pain management. He is being taken to the operating room for implantation of a permanent stimulator and battery. SURGEON Dr. Jesús Villa TECHNIQUE The patient was brought to the operating room, kept on the OR cart and intubated orally. He was then turned prone onto a Thomas frame. His back was prepped with Betadine and ChloraPrep. The battery incision was planned in the midaxillary fat pad on the right side. The back incision was planned under the pedicle of T9 based on fluoroscopic examination. After the proper timeout the incisions were infiltrated with 1% lidocaine with epinephrine in a 1:1 mixture with 0.25% Marcaine. The incision was made first at the battery site. A 6 cm incision was made with a 15 blade. It was carried down approximately a centimeter under the skin and over the muscular fascia with the monopolar cautery. The pocket was made approximating the size of the Proclaim battery. Hemostasis was obtained with irrigation and bipolar cautery. The back incision was then made with a 15 blade. It was carried down to the subcutaneous fascia exposing the laminae of T9 bilaterally inferiorly only. A laminotomy was carried out under the microscope with the 2 mm Midas drill bit. The dura was exposed and hemostasis obtained with bipolar cautery and bone wax. Under direct visualization using the microscope the trial for the Penta lead was advanced without difficulty in the epidural space. This was followed by the Penta lead itself. X-rays showed that the placement was between the pedicles of T8 and T9. This lead was secured in place with fibrin glue and the release loop was placed in the epidural space under the muscle fascia. The muscle fascia was then closed with interrupted 3-0 Vicryl sutures. The dermis was then closed with interrupted 2-0 Vicryl sutures. The skin edges were re-approximated with 4-0 subcuticular suture. The leads were then connected to the Proclaim pulse generator and impedances were obtained. They were all between 280 and 500 ohms. The Proclaim was placed into its pocket. The pocket was then closed with interrupted 2-0 and 3-0 Vicryl sutures. The skin edges were re-approximated with subcuticular 4-0 Monocryl followed by Dermabond. Dressings were applied. Steri-Strips followed by Telfa and Medipore tape were placed on the back and Dermabond followed by self Telfa and Medipore tape on the battery once the Dermabond was dry. The patient was then extubated and brought back to the recovery room in a stable condition. Estimated blood loss was 50 cc or less. The patient tolerated the procedure well. Jesús Villa MD YYG/FRANCIS /12:03 PM /10:48 AM [facility]
[2016-12-25] MEDS ORDERED: REMOVE OLD PATCH T-DERMAL SCH (16:00)
[2017-01-03] MEDS ORDERED: CYMB60CA PO (10:22)
[2017-02-27] MEDS ORDERED: TAMS0.4C4 PO (14:35)
[2017-03-06] MEDS ORDERED: LIDO5%T TOPICAL (14:27)
== END 2016-12-24 14:06 | disposition home or self-care (01) | DRG 253 ==
LOC: HSDC 06:03 → N05B 14:00 → OBSVTOIN 12-23 08:35
PROVIDERS: ADMIT Neurological Surgery; ATTEND Neurological Surgery
PROC: 00HU0MZ Insertion of Neurostimulator Lead into Spinal Canal, Open Approach (ICD-10-PCS; 2016-12-21)
PROC: 0JH70MZ Insertion of Stimulator Generator into Back Subcutaneous Tissue and Fascia, Open Approach (ICD-10-PCS; principal; 2016-12-21 09:40)
DX: I10 Essential (primary) hypertension (principal); N17.9 Acute kidney failure, unspecified; G89.4 Chronic pain syndrome; M54.9 Dorsalgia, unspecified; K76.9 Liver disease, unspecified; E87.6 Hypokalemia; E78.5 Hyperlipidemia, unspecified; K59.00 Constipation, unspecified; R94.31 Abnormal electrocardiogram [ECG] [EKG]; R33.9 Retention of urine, unspecified; G62.9 Polyneuropathy, unspecified
CPT/HCPCS: 72020; 76000; 80053; 82088; 84244; 85025; 86850; 86900; 86901; 93975; C1767; C1778; G0378; G8987-GO; G8987-GP; G8988-GO; G8988-GP; J0131; J0690; J1100; J2250; J2270; J2370; J2405; J2710; J3010; J7050; J7120